=== PATIENT | male | born 2005 | race Caucasian/White ===

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

== ENCOUNTER 2023-02-18 15:30 | Outpatient (RCR) | payer OTHER | END 2023-03-01 | disposition still patient (30) | LOC: WSOT | DX: M79.642 Pain in left hand (principal) ==